=== PATIENT | female | born 1960 | race Caucasian/White ===

== ENCOUNTER 2017-04-07 07:28 | Outpatient (CLI) | payer BC ==
[2017-04-08 11:25] LABS: BASOPHILS # (AUTO) 0.1 10^3/uL (0.0-0.1); BASOPHILS % (AUTO) 1.2 %; EOSINOPHILS # (AUTO) 0.4 10^3/uL (0.0-0.7); HCT - HEMATOCRIT 39.7 % (37.0-47.0); LYMPHOCYTES # (AUTO) 2.1 10^3/uL (1.5-3.5); LYMPHOCYTES % (AUTO) 28.1 %; MEAN CORPUSCULAR HEMOGLOBIN 32.7 pg (27.0-31.0); MEAN CORPUSCULAR HGB CONC 32.8 g/dL (32.0-36.0); MEAN CORPUSCULAR VOLUME 99.7 fL (81.0-99.0); MEAN PLATELET VOLUME 8.2 fL (7.9-10.8); MONOCYTES # (AUTO) 0.4 10^3/uL (0.0-1.0); MONOCYTES % (AUTO) 5.5 %; NEUTROPHILS # (AUTO) 4.5 10^3/uL (1.5-6.6); NEUTROPHILS % (AUTO) 60.2 %; NUCLEATED RED BLOOD CELLS AUTO 0.3 /100WBC; RED BLOOD COUNT 3.98 10^6/uL (4.20-5.40); RED CELL DISTRIBUTION WIDTH 14.3 % (12.0-15.0); UNCORRECTED WHITE BLOOD COUNT 7.5 x10^3/uL; WHITE BLOOD COUNT 7.5 x10^3/uL (4.8-10.8)
[2017-04-08 12:01] LABS: ALBUMIN/GLOBULIN RATIO 1.6 (1.0-2.2); BILIRUBIN,TOTAL 0.5 mg/dL (0.2-1.0); CALCIUM 9.1 mg/dL (8.5-10.3); CREATININE 0.8 mg/dL (0.4-1.0); TOTAL PROTEIN 6.8 g/dL (6.7-8.2)
== END 2017-04-07 07:29 | disposition home or self-care (01) ==
LOC: LAB.F 07:28
PROVIDERS: ATTEND Physician Assistant Medical
DX: E55.9 Vitamin D deficiency, unspecified (principal)
CPT/HCPCS: 36415; 80053; 82306; 85025

== ENCOUNTER 2018-10-06 10:08 | Outpatient (CLI) | payer BC ==
[2018-10-06 17:47] LABS: BASOPHILS % (AUTO) 0.9 %; EOSINOPHILS # (AUTO) 0.1 10^3/uL (0.0-0.7); EOSINOPHILS % (AUTO) 2.5 %; HGB - HEMOGLOBIN 12.5 g/dL (12.0-16.0); LYMPHOCYTES # (AUTO) 1.4 10^3/uL (1.5-3.5); LYMPHOCYTES % (AUTO) 30.5 %; MEAN CORPUSCULAR HEMOGLOBIN 32.7 pg (27.0-31.0); MEAN CORPUSCULAR HGB CONC 32.9 g/dL (32.0-36.0); MEAN CORPUSCULAR VOLUME 99.5 fL (81.0-99.0); MEAN PLATELET VOLUME 8.2 fL (7.9-10.8); MONOCYTES # (AUTO) 0.3 10^3/uL (0.0-1.0); MONOCYTES % (AUTO) 6.2 %; NEUTROPHILS # (AUTO) 2.7 10^3/uL (1.5-6.6); NEUTROPHILS % (AUTO) 59.9 %; PLT - PLATELET COUNT 321 10^3/uL (130-450); RED BLOOD COUNT 3.83 10^6/uL (4.20-5.40); RED CELL DISTRIBUTION WIDTH 13.5 % (12.0-15.0); WHITE BLOOD COUNT 4.5 x10^3/uL (4.8-10.8)
[2018-10-06 17:52] LABS: ALBUMIN 3.9 g/dL (3.2-5.5); ALBUMIN/GLOBULIN RATIO 1.4 (1.0-2.2); ALKALINE PHOSPHATASE 44 IU/L (42-121); ALT ALANINE AMINOTRANSFERASE 19 IU/L (10-60); AST ASPARTATE AMINOTRANSFERASE 21 IU/L (10-42); BILIRUBIN,TOTAL 1.1 mg/dL (0.2-1.0); BUN - BLOOD UREA NITROGEN 12 mg/dL (6-20); CALCIUM 8.9 mg/dL (8.5-10.3); CARBON DIOXIDE - CO2 25 mmol/L (21-32); CHLORIDE 106 mmol/L (101-111); CHOL/HDL RATIO 4.5 (<4.4); CHOLESTEROL 254 mg/dL; CREATININE 0.7 mg/dL (0.4-1.0); GFR - MDRD 87 (>89); GLUCOSE 98 mg/dL (70-100); HDL CHOLESTEROL 57 mg/dL; LDL CHOLESTEROL,CALCULATED 175 mg/dL; LDL/HDL RATIO 3.1 (<4.4); SODIUM 138 mmol/L (135-145); TOTAL PROTEIN 6.6 g/dL (6.7-8.2); VLDL CHOLESTEROL 22 mg/dL
[2018-10-06 17:54] LABS: THYROID STIMULATING HORMONE 1.59 uIU/mL (0.34-5.60)
== END 2018-10-06 10:09 | disposition home or self-care (01) ==
LOC: LAB.F 10:08
PROVIDERS: ATTEND Physician Assistant Medical
DX: Z00.00 Encounter for general adult medical examination without abnormal findings (principal); Z51.81 Encounter for therapeutic drug level monitoring
CPT/HCPCS: 36415; 80053; 80061; 82607; 83721; 84443; 85025

== ENCOUNTER 2018-10-07 09:19 | Outpatient (CLI) | payer BC ==
--- NOTE | 2018-10-08 09:17 | DEXA Report ---
Reason: POSTMENOPAUSAL STATUS Procedure Date: 10/07/2018 Accession Number: [id number] / [id number] Procedure: DEX - Dexa Spine and/or Hip CPT Code: FULL RESULT: EXAM: Dexa Spine and/or Hip DATE: 10/07/2018 9:54 AM CLINICAL HISTORY: POSTMENOPAUSAL STATUS TECHNIQUE: Dual energy x-ray absorptiometry (DXA) was performed on a [employer] System. Regions measured are the AP Spine, femoral neck, and if needed forearm. COMPARISON: None. In accordance with the International Society for Clinical Densitometry (ISCD) guidelines, data from previous exams may be reanalyzed using current recommendations and techniques. This is done to allow a more accurate basis for comparison with the current study. FINDINGS: The data for the lumbar spine is as follows: BMD (g/cm/cm) T-SCORE Z-SCORE REGION L1 1.065 -0.5 -0.8 L2 0.978 -1.9 -2.1 L3 1.103 -0.8 -1.1 L4 1.193 -0.1 -0.3 TOTAL 1.088 -0.8 -1.0 NOTE: All evaluable vertebrae are used for classification The data for the hip is as follows: BMD (g/cm/cm) T-SCORE Z-SCORE REGION Neck 0.895 -1.0 -0.7 TOTAL 0.906 -0.8 -0.9 NOTE: The femoral neck or total proximal femur, whichever is lowest, is used for classification. IMPRESSION: THE WHO CLASSIFICATION BASED ON THE INTERNATIONAL REFERENCE STANDARD IS NORMAL. THE FRACTURE RISK IS NOT INCREASED. RECOMMENDATION: Patients with diagnosis of osteoporosis or osteopenia should have regular bone mineral density assessment. For those eligible for Medicare, routine testing is allowed once every 2 years. Testing frequency can be increased for patients who have rapidly progressing disease or for those who are receiving medical therapy to restore bone mass. COMMENT: World Health Organization (WHO) definitions for osteoporosis and osteopenia: NORMAL BMD: T-score at -1.0 or higher, fracture risk is low OSTEOPENIA BMD: T-score between -1.0 and -2.5, fracture risk is increased. OSTEOPOROSIS BMD: T-score at -2.5 or lower, fracture risk is high. National Osteoporosis Foundation recommends: 1. Obtain adequate dietary calcium (at least 1200 mg per day) and vitamin D (400-800 international units per day). 2. Participate, as appropriate, in regular weightbearing and muscle-strengthening exercise. 3. Avoid tobacco use and reduce alcohol and caffeine intake. 4. For more detailed information see the website at www.NOF.org.
== END 2018-10-07 09:20 | disposition home or self-care (01) ==
LOC: DI 09:19
PROVIDERS: ATTEND Physician Assistant Medical
DX: Z78.0 Asymptomatic menopausal state (principal)
CPT/HCPCS: 77080

== ENCOUNTER 2019-12-02 08:09 | Outpatient (CLI) | payer BC ==
[2019-12-02 10:24] LABS: BASOPHILS # (AUTO) 0.1 10^3/uL (0.0-0.1); BASOPHILS % (AUTO) 1.3 %; EOSINOPHILS # (AUTO) 0.1 10^3/uL (0.0-0.7); EOSINOPHILS % (AUTO) 1.5 %; LYMPHOCYTES # (AUTO) 1.4 10^3/uL (1.5-3.5); LYMPHOCYTES % (AUTO) 27.3 %; MEAN CORPUSCULAR HEMOGLOBIN 32.9 pg (27.0-31.0); MEAN CORPUSCULAR HGB CONC 32.1 g/dL (32.0-36.0); MEAN CORPUSCULAR VOLUME 102.5 fL (81.0-99.0); MONOCYTES # (AUTO) 0.3 10^3/uL (0.0-1.0); MONOCYTES % (AUTO) 5.9 %; NEUTROPHILS # (AUTO) 3.3 10^3/uL (1.5-6.6); NEUTROPHILS % (AUTO) 63.6 %; RED BLOOD COUNT 3.95 10^6/uL (4.20-5.40); RED CELL DISTRIBUTION WIDTH 12.3 % (12.0-15.0)
[2019-12-02 10:36] LABS: ALKALINE PHOSPHATASE 37 IU/L (42-121); ALT ALANINE AMINOTRANSFERASE 24 IU/L (10-60); AST ASPARTATE AMINOTRANSFERASE 20 IU/L (10-42); BILIRUBIN,TOTAL 0.9 mg/dL (0.2-1.0); CARBON DIOXIDE - CO2 24 mmol/L (21-32); CHLORIDE 105 mmol/L (101-111); CHOLESTEROL 218 mg/dL; GLUCOSE 104 mg/dL (70-100); HDL CHOLESTEROL 55 mg/dL; LDL CHOLESTEROL,CALCULATED 136 mg/dL; LDL/HDL RATIO 2.5 (<4.4); SODIUM 140 mmol/L (135-145); VLDL CHOLESTEROL 27 mg/dL
[2019-12-02 10:43] LABS: WHITE BLOOD COUNT 5.2 x10^3/uL (4.8-10.8)
[2019-12-02 10:45] LABS: ALBUMIN 3.9 g/dL (3.2-5.5); ALBUMIN/GLOBULIN RATIO 1.3 (1.0-2.2); BUN - BLOOD UREA NITROGEN 15 mg/dL (6-20); CREATININE 0.9 mg/dL (0.4-1.0); GFR - MDRD 65 (>89)
== END 2019-12-02 08:10 | disposition home or self-care (01) ==
LOC: LAB.S 08:09
PROVIDERS: ATTEND Physician Assistant Medical
DX: Z51.81 Encounter for therapeutic drug level monitoring (principal); Z79.899 Other long term (current) drug therapy
CPT/HCPCS: 36415; 80053; 80061; 83721; 85025

== ENCOUNTER 2020-11-13 07:49 | Outpatient (CLI) | payer BC ==
[2020-11-13 15:35] LABS: BASOPHILS # (AUTO) 0.1 10^3/uL (0.0-0.1); BASOPHILS % (AUTO) 1.1 %; EOSINOPHILS # (AUTO) 0.3 10^3/uL (0.0-0.7); EOSINOPHILS % (AUTO) 5.1 %; HGB - HEMOGLOBIN 13.1 g/dL (12.0-16.0); LYMPHOCYTES # (AUTO) 1.6 10^3/uL (1.5-3.5); LYMPHOCYTES % (AUTO) 30.8 %; MEAN CORPUSCULAR HEMOGLOBIN 32.5 pg (27.0-31.0); MEAN CORPUSCULAR HGB CONC 31.3 g/dL (32.0-36.0); MEAN CORPUSCULAR VOLUME 103.7 fL (81.0-99.0); MEAN PLATELET VOLUME 10.2 fL (7.9-10.8); MONOCYTES # (AUTO) 0.3 10^3/uL (0.0-1.0); MONOCYTES % (AUTO) 6.4 %; NEUTROPHILS % (AUTO) 56.4 %; PLT - PLATELET COUNT 315 10^3/uL (130-450); RED BLOOD COUNT 4.03 10^6/uL (4.20-5.40); RED CELL DISTRIBUTION WIDTH 12.7 % (12.0-15.0); WHITE BLOOD COUNT 5.3 x10^3/uL (4.8-10.8)
[2020-11-13 15:44] LABS: ALBUMIN 4.3 g/dL (3.2-5.5); ALBUMIN/GLOBULIN RATIO 1.5 (1.0-2.2); ALKALINE PHOSPHATASE 38 IU/L (42-121); ALT ALANINE AMINOTRANSFERASE 28 IU/L (10-60); AST ASPARTATE AMINOTRANSFERASE 27 IU/L (10-42); BILIRUBIN,TOTAL 1.2 mg/dL (0.2-1.0); BUN - BLOOD UREA NITROGEN 14 mg/dL (6-20); CALCIUM 9.4 mg/dL (8.5-10.3); CARBON DIOXIDE - CO2 25 mmol/L (21-32); CHLORIDE 104 mmol/L (101-111); CHOL/HDL RATIO 4.5 (<4.4); CHOLESTEROL 294 mg/dL; CREATININE 0.9 mg/dL (0.4-1.0); GLUCOSE 102 mg/dL (70-100); HDL CHOLESTEROL 66 mg/dL; LDL CHOLESTEROL,CALCULATED 200 mg/dL; SODIUM 138 mmol/L (135-145); TOTAL PROTEIN 7.1 g/dL (6.7-8.2); VLDL CHOLESTEROL 28 mg/dL
== END 2020-11-13 07:50 | disposition home or self-care (01) ==
LOC: LAB.S 07:49
PROVIDERS: ATTEND Registered Nurse
DX: E78.00 Pure hypercholesterolemia, unspecified (principal); Z13.228 Encounter for screening for other metabolic disorders; Z13.29 Encounter for screening for other suspected endocrine disorder; Z13.0 Encounter for screening for diseases of the blood and blood-forming organs and certain disorders involving the immune mechanism
CPT/HCPCS: 36415; 80053; 80061; 83721; 84443; 85025

== ENCOUNTER 2020-12-27 08:00 | Outpatient (CLI) | payer BC | END 2020-12-27 23:59 | disposition home or self-care (01) | LOC: LAB.R 08:00 | PROVIDERS: ATTEND Emergency Medicine | DX: S61.451A Open bite of right hand, initial encounter (principal); W55.01XA Bitten by cat, initial encounter | CPT/HCPCS: 87070; 87077; 87181; 87205 ==

== ENCOUNTER 2021-12-16 08:42 | Outpatient (CLI) | payer BC ==
--- NOTE | 2021-12-17 07:38 | Mammography Report ---
BILATERAL DIGITAL SCREENING MAMMOGRAM 3D/2D: 12/16/2021 CLINICAL: Routine screening. Comparison is made to exams dated: 01/31/2016 mammogram and 11/13/2014 mammogram - [facility]. The tissue of both breasts is predominantly fatty. No significant masses, calcifications, or other findings are seen in either breast. There has been no significant interval change. IMPRESSION: NEGATIVE There is no mammographic evidence of malignancy. A 1 year screening mammogram is recommended. This exam was interpreted at Station ID: [id number]. NOTE: For mammograms, a report in lay terms will be sent to the patient. Approximately 15% of breast malignancies will not be visualized mammographically. In the management of a palpable breast mass, a negative mammogram must not discourage biopsy of a clinically suspicious lesion. Electronically Signed By: Topher Centeno M.D. ar/penrad:12/16/2021 10:59:16 ACR BI-RADS Category 1: Negative 3341F PARENCHYMAL PATTERN: (F) - The breast(s) demonstrate(s) diffuse fatty replacement. BI-RADS CATEGORY: (1) - 1 RECOMMENDATION: (ANNUAL) - Recommend routine annual screening mammography. [id number] 1 year screening LATERALITY: (B)
== END 2021-12-16 08:43 | disposition home or self-care (01) ==
LOC: DI.S 08:42
PROVIDERS: ATTEND Registered Nurse
DX: Z12.31 Encounter for screening mammogram for malignant neoplasm of breast (principal)

== ENCOUNTER 2022-03-06 12:31 | Outpatient (CLI) | payer BC ==
--- NOTE | 2022-03-06 15:48 | XRAY Report ---
PROCEDURE: Knee 2 View BILAT INDICATIONS: BILATERAL KNEE JOINT PAIN TECHNIQUE: 2 views of the bilateral knee(s) were acquired. COMPARISON: None. FINDINGS: Bones: There is moderate right femorotibial compartment narrowing and lateral left femorotibial ben rtment narrowing. There are I lateral tricompartmental osteophytes. Soft tissues: No joint effusion. No suspicious soft tissue calcifications. IMPRESSION: Moderate to severe bilateral knee osteoarthritis. Reviewed by: Jaquelin Isaca MD on 03/06/2022 3:47 PM PDT Approved by: Jaquelin Isaac MD on 03/06/2022 3:47 PM PDT Station ID: [id number]
== END 2022-03-06 12:32 | disposition home or self-care (01) ==
LOC: DI.S 12:31
PROVIDERS: ATTEND Registered Nurse
DX: M17.0 Bilateral primary osteoarthritis of knee (principal)

== ENCOUNTER 2022-06-30 08:00 | Outpatient (CLI) | payer BC ==
--- NOTE | 2022-06-30 16:41 | XRAY Report ---
PROCEDURE: Chest 2 View X-Ray INDICATIONS: COUGH, CHEST CONGESTION TECHNIQUE: 2 view(s) of the chest. COMPARISON: None. FINDINGS: Surgical changes and devices: None. Lungs and pleura: No pleural effusions or pneumothorax. Lungs are clear. Mediastinum: Mediastinal contours are normal. Heart size is normal. Bones and chest wall: No suspicious bony abnormalities. Soft tissues appear unremarkable. IMPRESSION: Chest without acute cardiopulmonary abnormalities or focal airspace disease. Reviewed by: Armen Figueroa MD on 06/30/2022 4:40 PM PDT Approved by: Armen Figueroa MD on 06/30/2022 4:40 PM PDT Station ID: [id number]
== END 2022-06-30 08:01 | disposition home or self-care (01) ==
LOC: DI.S 08:00
PROVIDERS: ATTEND Physician Assistant Medical
DX: R05.9 Cough, unspecified (principal); R09.89 Other specified symptoms and signs involving the circulatory and respiratory systems; Z86.16 Personal history of COVID-19

== ENCOUNTER 2023-01-13 10:42 | Outpatient (CLI) | payer BC, OTHER ==
--- NOTE | 2023-01-14 09:00 | Mammography Report ---
BILATERAL DIGITAL SCREENING MAMMOGRAM 3D/2D: 01/13/2023 CLINICAL: Routine screening. Comparison is made to exams dated: 12/16/2021 mammogram, 01/31/2016 mammogram, and 11/13/2014 mammogram - [facility]. Both breasts are almost entirely fatty (category a/<25% glandular tissue). There is a benign focal asymmetry in the left breast. No significant masses, calcifications, or other findings are seen in either breast. There has been no significant interval change. IMPRESSION: BENIGN There is no mammographic evidence of malignancy. A 1 year screening mammogram is recommended. Based on the Tyrer Cuzick model (a risk assessment model) the patients lifetime risk is 6.4% and her 10 year risk is 2.6%. According to the ACR, ACS, and NCCN guidelines, an annual breast MRI exam chriss g with mammogram is recommended if the patients lifetime risk is 20% or greater. This exam was interpreted at Station ID: [id number]. NOTE: For mammograms, a report in lay terms will be sent to the patient. Approximately 15% of breast malignancies will not be visualized mammographically. In the management of a palpable breast mass, a negative mammogram must not discourage biopsy of a clinically suspicious lesion. Electronically Signed By: Mi mckeon/yadiel:01/13/2023 17:02:06 letter sent: No_Letter ACR BI-RADS Category 2: Benign Finding(s) 3342F PARENCHYMAL PATTERN: (F) - The breast(s) demonstrate(s) diffuse fatty replacement. BI-RADS CATEGORY: (2) - 2 Mammogram [id number] 1 year screening LATERALITY: (B)
== END 2023-01-13 10:43 | disposition home or self-care (01) ==
LOC: DI.S 10:42
PROVIDERS: ATTEND Registered Nurse
DX: Z12.31 Encounter for screening mammogram for malignant neoplasm of breast (principal)

== ENCOUNTER 2023-06-18 14:40 | Outpatient (CLI) | payer OTHER | END 2023-06-18 14:41 | disposition home or self-care (01) | LOC: RT 14:40 | PROVIDERS: ATTEND Registered Nurse | DX: J45.909 Unspecified asthma, uncomplicated (principal) | CPT/HCPCS: 94010; 94729 ==

== ENCOUNTER 2024-02-03 10:40 | Outpatient (CLI) | payer OTHER ==
--- NOTE | 2024-02-04 09:10 | Mammography Report ---
BILATERAL DIGITAL SCREENING MAMMOGRAM 3D/2D: 02/03/2024 CLINICAL: Routine screening. Comparison is made to exams dated: 01/13/2023 mammogram, 12/16/2021 mammogram, 01/31/2016 mammogram, an d 11/13/2014 mammogram - [facility]. Both breasts are almost entirely fatty (category a/<25% glandular tissue). There are grouped punctate calcifications in the left breast at 1 o'clock middle depth. These are in creased in number. No other significant masses, calcifications, or other findings are seen in either breast. IMPRESSION: INCOMPLETE: NEEDS ADDITIONAL IMAGING EVALUATION The grouped punctate calcifications in the left breast are indeterminate. Additional views with poss ible ultrasound are recommended. Based on the Tyrer Cuzick model (a risk assessment model) the patient's lifetime risk is 6.3% and her 10 year risk is 2.6%. According to the ACR, ACS, and NCCN guidelines, an annual breast MRI exam chriss g with mammogram is recommended if the patient's lifetime risk is 20% or greater. This exam was interpreted at Station ID: [id number]. NOTE: For mammograms, a report in lay terms will be sent to the patient. Approximately 15% of breast malignancies will not be visualized mammographically. In the management of a palpable breast mass, a negative mammogram must not discourage biopsy of a clinically suspicious lesion. Electronically Signed By: Mi mckeon/:02/03/2024 16:41:33 ACR BI-RADS Category 0: Incomplete 3340F PARENCHYMAL PATTERN: (F) - The breast(s) demonstrate(s) diffuse fatty replacement. BI-RADS CATEGORY: (0) - 0 Mammo and [place] [id number] Immediate follow-up LATERALITY: (B)
== END 2024-02-03 10:41 | disposition home or self-care (01) ==
LOC: DI.S 10:40
PROVIDERS: ATTEND Registered Nurse
DX: Z12.31 Encounter for screening mammogram for malignant neoplasm of breast (principal); R92.1 Mammographic calcification found on diagnostic imaging of breast

== ENCOUNTER 2024-03-08 12:18 | Outpatient (CLI) | payer OTHER ==
--- NOTE | 2024-03-09 08:51 | Mammography Report ---
UNILATERAL LEFT DIGITAL DIAGNOSTIC MAMMOGRAM 3D/2D WITH MAGNIFICATION: 03/08/2024 CLINICAL: Patient returns for magnification views of microcalcifications in the left breast. Comparison is made to exams dated: 02/03/2024 mammogram, 01/13/2023 mammogram, and 12/16/2021 mammogram - [facility]. The left breast is almost entirely fatty (category a/<25% glandular tissue). There is a 2.9 cm area of grouped fine heterogeneous calcifications in the left breast at 1 o'clock m iddle depth. These are seen in additional views. These are increased in number. No other significant masses or calcifications are seen in the breast. IMPRESSION: INCOMPLETE: NEEDS ADDITIONAL IMAGING EVALUATION The 2.9 cm area of grouped fine heterogeneous calcifications in the left breast are indeterminate. A n ultrasound is recommended. Based on the Tyrer Cuzick model (a risk assessment model) the patient's lifetime risk is 6.3% and her 10 year risk is 2.6%. According to the ACR, ACS, and NCCN guidelines, an annual breast MRI exam chriss g with mammogram is recommended if the patient's lifetime risk is 20% or greater. This exam was interpreted at Station ID: [id number]. NOTE: For mammograms, a report in lay terms will be sent to the patient. Approximately 15% of breast malignancies will not be visualized mammographically. In the management of a palpable breast mass, a negative mammogram must not discourage biopsy of a clinically suspicious lesion. Electronically Signed By: Topher Centeno M.D. ar/penrad:03/08/2024 13:40:05 ACR BI-RADS Category 0: Incomplete 3340F PARENCHYMAL PATTERN: (F) - The breast(s) demonstrate(s) diffuse fatty replacement. BI-RADS CATEGORY: (0) - 0 Ultrasound [id number] Immediate follow-up LATERALITY: (L)
--- NOTE | 2024-03-09 08:51 | Ultrasound Report ---
LIMITED ULTRASOUND OF LEFT BREAST AND AXILLA: 03/08/2024 CLINICAL: Patient returns today to evaluate a focal asymmetry in the left breast. Comparison is made to exams dated: 03/08/2024 mammogram, 02/03/2024 mammogram, 01/13/2023 mammogram, and 12/16/2021 mammogram - [facility]. Color flow and real-time ultrasound of the left breast 1 o'clock, and axilla regions were performed. Romero scale images of the real-time examination were reviewed. No significant abnormalities were seen sonographically in the left breast or the left axilla. IMPRESSION: SUSPICIOUS OF MALIGNANCY There is no reliable sonographic biopsy target seen in the left breast to correspond with the mammogr aphic calcifications at 1 o'clock. Stereotactic biopsy is recommended for further evaluation. Finding s and recommendations were discussed with the patient by the onsite radiologist, Dr. Figueroa, at the time of the exam. No significant abnormalities were seen sonographically in the left axilla. This exam was interpreted at Station ID: [id number]. Electronically Signed By: Topher Centeno M.D. ar/:03/08/2024 13:43:18 Ultrasound BI-RADS: 4c High suspicion of malignancy BI-RADS CATEGORY: (4c) - High Susp Biopsy [id number] Immediate follow-up LATERALITY: (L)
== END 2024-03-08 12:19 | disposition home or self-care (01) ==
LOC: DI 12:18
PROVIDERS: ATTEND Registered Nurse
DX: R92.1 Mammographic calcification found on diagnostic imaging of breast (principal)

== ENCOUNTER 2024-06-06 07:41 | Day surgery (SDC) | payer OTHER ==
[2024-06-06] MEDS ORDERED: ceFAZolin 2 GM VIAL ONE (07:45)
[2024-06-06] MEDS ORDERED: LIDOCAINE 1%-EPI 1:100000 20 ML MDV ONE ×2 (08:08→09:22)
[2024-06-06] MEDS ORDERED: LIDOCAINE-MPF 1% 5 ML VIAL ONE (08:08)
[2024-06-06] MEDS: ACETAMINOPHEN 500 MG TABLET PO ONE (08:16)
[2024-06-06] MEDS: LACTATED RINGERS 1,000 ML IV ONE ×2 (08:17→12:03)
--- NOTE | 2024-06-06 08:45 | ANESTHESIA ---
Pre-Anesthesia VS, & Labs - Diagnosis DCIS - Procedure BREAST LUMPECTOMY LEFT Vital Signs: Temp Pulse Resp BP Pulse Ox O2 Flow Rate 36.0 C L 74 16 141/89 H 99 06/06/24 08:04 06/06/24 08:04 06/06/24 08:04 06/06/24 08:04 06/06/24 08:04 Height: 5 ft 4 in Weight (kg): 103 kg Body Mass Index: 38.9 BMI Classification: Obese - NPO >8 hours - Is Patient ?: No Home Medications and Allergies Home Medications: Ambulatory Orders Calcium Carbonate [Tums (Calcium Carbonate 500mg)] 500 mg PO PRN PRN 05/27/24 Calcium Carbonate/Vitamin D3 [Calcium 500 mg Chewable Tablet] 1 each PO DAILY 05/27/24 Multivit-Minerals/Folic Acid [Multivitamin Gummies] 200 mcg PO DAILY 05/27/24 Naproxen Sodium [Aleve] 220 mg PO DAILY PRN 05/27/24 Albuterol Sulfate [Ventolin Hfa] 1 - 2 puffs INH PRN PRN 09/14/14 Fluticasone Propion/Salmeterol [Fluticasone-Salmeterol 250-50] 1 each IH BID 04/20/24 Latanoprost 0.005% Ophth Drops [Xalatan Ophth Drops] 1 drops EACHEYE QPM 04/20/24 Omeprazole 20 mg PO DAILY 04/20/24 Timolol 0.5% Ophth Drops [Timoptic 0.5% Ophth Drops] 1 drops EACHEYE BID 04/20/24 Calcium Carbonate [Tums (Calcium Carbonate 500mg)] 500 mg PO PRN PRN 05/27/24 Calcium Carbonate/Vitamin D3 [Calcium 500 mg Chewable Tablet] 1 each PO DAILY 05/27/24 Multivit-Minerals/Folic Acid [Multivitamin Gummies] 200 mcg PO DAILY 05/27/24 Naproxen Sodium [Aleve] 220 mg PO DAILY PRN 05/27/24 Allergies/Adverse Reactions: Allergies Allergy/AdvReac Type Severity Reaction Status Date / Time brimonidine AdvReac red, teary Verified 05/27/24 13:23 eyes Anes History & Medical History - Anesthetic History Anesthesia Complications: reports: No previous complications Family history of Anesthesia Complications: Denies Family history of Malignant Hyperthermia: Denies - Medical History Cardiovascular: reports: None Pulmonary: reports: Asthma (DAILY INHALER AND EMERGENCY INHALER) Gastrointestinal: reports: GERD Urinary: reports: None Neuro: reports: None Musculoskeletal: reports: Osteoarthritis Endocrine/Autoimmune: reports: None Blood Disorders: reports: None Skin: reports: None Smoking Status: Never smoker Psychosocial: reports: No issues indicated History of Cancer?: Yes (NO PREVIOUS CHEMO OR RADIATION) Results - EKG Results EKG Comparison: Reviewed EKG, Normal EKG Exam General: Alert, Oriented x3, Cooperative, No acute distress Dental: WNL Mouth Openin Fingerbreadth Neck Mobility: Normal Mallampati classification: I Thyromental Distance: 4-6 cm Mental/Cognitive Status: Alert/Oriented X3, Normal for patient Cognitive Status: Within normal limits Plan Anesthesia Type: General Consent for Procedure(s) Verified and Reviewed: Yes Code Status: Attempt Resuscitation ASA classification: 3-Severe systemic disease Is this case an emergency?: No
[2024-06-06] MEDS ORDERED: ePHEDrine 50 MG/ML VIAL IVP PRN (08:48)
[2024-06-06] MEDS ORDERED: ONDANSETRON 4 MG/2 ML VIAL IVP PRN ×2 (08:48→12:07)
[2024-06-06] MEDS ORDERED: fentaNYL 100 MCG/2 ML VIAL IVP PRN (08:48)
[2024-06-06] MEDS ORDERED: NALOXONE 0.4 MG/ML VIAL IVP PRN (08:48)
[2024-06-06] MEDS ORDERED: ATROPINE ABBOJECT 1 MG/10 ML SYRINGE IVP PRN (08:48)
[2024-06-06] MEDS ORDERED: HYDROmorphone 0.5 MG/0.5 ML SYRINGE IVP PRN ×2 (08:48→12:07)
[2024-06-06] MEDS ORDERED: LACTATED RINGERS 1,000 ML IV SCH (09:00)
[2024-06-06] MEDS ORDERED: BUPIVACAINE 0.5% PF 10 ML VIAL ONE (09:22)
[2024-06-06] MEDS: LIDOCAINE-MPF 1% 5 ML VIAL TD ONE (10:05)
[2024-06-06] MEDS: BUPIVACAINE 0.5% PF 30 ML VIAL INFIL ONE (11:07)
[2024-06-06] MEDS: LIDOCAINE 1%-EPI 1:100000 50 ML VIAL SUBQ ONE (11:08)
[2024-06-06] MEDS ORDERED: ACETAMINOPHEN 500 MG TABLET PO PRN (12:07)
[2024-06-06] MEDS ORDERED: IBUPROFEN 600 MG TABLET PO PRN (12:07)
--- NOTE | 2024-06-06 12:14 | OPERATIVE REPORT ---
Operative Report - General Procedure Date: 06/06/24 Planned Procedure: wire bracketed left lumpectomy Pre-Op Diagnosis: L breast DCIS Procedure Performed: wire bracketed left lumpectomy Post Op Diagnosis: L breast DCIS - Procedure Note Primary Surgeon: Dr. Kelly Aguirre Anesthesia Provider: Zulema Ortiz CRNA Anesthesia Technique: General LMA, Local Pathology: 1. L lumpectomy 2. reexcision of inferior margin Estimated Blood Loss (mL): 15 Drain/Tube Type: Jesus Manuel Mancera round drain (L breast) Indications: The patient had abnormal calcifications noted on her recent screening mammogram without any associated mass. Image guided biopsy revealed DCIS. She was seen and evaluated in the clinic where we discussed the risks, benefits, and alternatives of lumpectomy including but not limited to bleeding, infection, damage to surrounding structures, upgrade of the DCIS to invasive ductal carcinoma, positive margins, and the possible need for further surgeries or procedures. The patient voiced understanding, her questions were answered, and she wished to proceed. A consent was signed by the patient prior to surgery. Findings: 1.Clip and 2 wires present in initial specimen. Specimen was oriented short superior, long lateral, double anterior 2. Additional inferior margin was reexcised and oriented short superior, long lateral, double anterior Complications: None - Other Other Information/Narrative: The patient was taken to the operating room and placed in the supine position. Preop antibiotics were given. ERAS medications were given. The patient was prepped and draped in the usual sterile fashion. A preop surgical timeout was performed. Attention was turned to the patient's left breast. An incision was made which incorporated both wires, following the patient's skin folds, at the 10 o'clock position. Skin flaps were raised superiorly and inferiorly to the incision. Serrated scissors were used to perform a lumpectomy staying approximately 1 cm away from the wires, and in a directed fashion based on the mammogram taken after wire placement. The lumpectomy was noted to be close to the tip of the posterior wire which appeared to be the inferior aspect of the calcifications. An additional specimen was taken in this location and labeled reexcision of inferior margin. Both specimens were oriented short superior, long lateral, double anterior with marking suture on the back table. The first specimen was sent to mammography and the biopsy clip was confirmed to be within the specimen with both wires present.The edges of the lumpectomy cavity were inspected and there were no palpable abnormalities. Hemostasis was confirmed. The lumpectomy cavity was irrigated with warm normal saline. Clips were placed in the superior, inferior, medial, lateral, anterior, and posterior margins of the lumpectomy cavity. A 7 Cuban ISHA drain was placed in the lumpectomy cavity due to its size. This was sewn into place using a 3-0 nylon suture. The deep dermal tissues were closed with 3-0 Vicryl in an interrupted fashion. The skin was closed with 4-0 Monocryl in a running subcuticular fashion. The patient tolerated the procedure well. There were no complications. Because the patient has DCIS at the time of this procedure, no axillary lymph node staging is necessary at this time.
[2024-06-06] MEDS ORDERED: oxyCODONE 5 MG TABLET ONE (13:39)
[2024-06-06] MEDS: oxyCODONE 5 MG TABLET PO PRN (13:42)
[2024-06-06 14:35] VITALS: BP 125/70; O2SAT 98
--- NOTE | 2024-06-07 07:46 | Mammography Report ---
SPECIMEN LEFT BREAST: 06/06/2024 CLINICAL: Left breast specimen. Correlation is made to exams dated: 06/06/2024 localization, 03/22/2024 stereotactic biopsy, 03/08/2024 m ammogram, 02/03/2024 mammogram, and 01/13/2023 mammogram - [facility]. A surgical specimen was imaged for the 2.9 cm area of calcifications located in the left breast at 1 o'clock middle depth. This was described on the previous mammography and biopsy reports. IMPRESSION: SPECIMEN The imaged specimen includes the calcifications, a biopsy clip, and the distal portion of the localiz ation wires. This exam was interpreted at Station ID: [id number]. Topher ng/yadiel:06/06/2024 20:13:14 BI-RADS CATEGORY: () - Unspecified - other recall n/a LATERALITY: (B)
--- NOTE | 2024-06-07 07:46 | Mammography Report ---
DIGITAL MAMMOGRAPHY GUIDED WIRE LOCALIZATION LEFT BREAST WITH POST DIGITAL MAMMOGRAPHIC IMAGING- - LE FT BREAST POST-PROCEDURE IMAGING FOR MARKER PLACEMENT: 06/06/2024 CLINICAL: Left breast wire localization. Correlation is made to exams dated: 03/22/2024 stereotactic biopsy, 03/08/2024 ultrasound, 03/08/2024 bladimir mogram, 02/03/2024 mammogram, 01/13/2023 mammogram, and 12/16/2021 mammogram - [facility]. A wire localization using digital mammography guidance was performed for the 2.9 cm area of calcifica tions located in the left breast at 1 o'clock middle depth. This was described on the previous mammo graphy and biopsy reports. The skin was prepped in the usual manner. Local anesthetic was administe red to the access site. A skin wilver was made in the breast. The localization was approached from th e craniocaudal aspect. Two J-hook wires were inserted into the targeted area under digital mammograp hy guidance. A sterile dressing was applied to the access site. Post placement digital mammographic imaging demonstrates the tips demarcate the boundaries of the targeted area. IMPRESSION: WIRE LOCALIZATION Wire localization for the 2.9 cm area of calcifications in the left breast at 1 o'clock middle depth with placement of two wires was successful with no apparent post procedure complications. This exam was interpreted at Station ID: [id number]. Topher ng/yadiel:06/06/2024 20:07:40 BI-RADS CATEGORY: () - Unspecified - other recall n/a LATERALITY: (B)
== END 2024-06-06 07:42 | disposition home or self-care (01) ==
LOC: DI 07:41
PROVIDERS: ATTEND Surgery
PROC: 0HBU0ZZ Excision of Left Breast, Open Approach (ICD-10-PCS; principal; 2024-06-06 10:00)
DX: D05.12 Intraductal carcinoma in situ of left breast (principal); E66.9 Obesity, unspecified; Z68.38 Body mass index [BMI] 38.0-38.9, adult; J45.909 Unspecified asthma, uncomplicated

== ENCOUNTER 2024-06-27 10:09 | Outpatient (CLI) | payer OTHER | END 2024-06-27 10:10 | disposition home or self-care (01) | LOC: LAB.S 10:09 | PROVIDERS: ATTEND Registered Nurse | DX: Z13.228 Encounter for screening for other metabolic disorders (principal); Z13.220 Encounter for screening for lipoid disorders; Z13.29 Encounter for screening for other suspected endocrine disorder; Z13.0 Encounter for screening for diseases of the blood and blood-forming organs and certain disorders involving the immune mechanism | CPT/HCPCS: 36415; 80053; 80061; 83721; 84443; 85025 ==

== ENCOUNTER 2024-07-11 07:41 | Day surgery (SDC) | payer OTHER ==
[~2024-07-11 07:41] MED LIST: ceFAZolin 2 GM VIAL ONE
[2024-07-11] MEDS: LACTATED RINGERS 1,000 ML IV ONE ×2 (07:43→11:06)
[2024-07-11] MEDS: ALPRAZolam 0.25 MG TABLET PO ONE ×2 (08:01→08:31)
[2024-07-11] MEDS: ACETAMINOPHEN 500 MG TABLET PO ONE (08:01)
[2024-07-11] MEDS ORDERED: MORPHINE 2 MG/ML CARPUJECT IVP PRN (08:50)
[2024-07-11] MEDS ORDERED: ePHEDrine 50 MG/ML VIAL IVP PRN (08:50)
[2024-07-11] MEDS ORDERED: ATROPINE ABBOJECT 1 MG/10 ML SYRINGE IVP PRN (08:50)
[2024-07-11] MEDS ORDERED: ONDANSETRON 4 MG/2 ML VIAL IVP PRN ×2 (08:50→10:28)
[2024-07-11] MEDS ORDERED: HYDROmorphone 0.5 MG/0.5 ML SYRINGE IVP PRN ×2 (08:50→10:28)
[2024-07-11] MEDS ORDERED: METOCLOPRAMIDE 10 MG/2 ML VIAL IVP PRN (08:50)
[2024-07-11] MEDS ORDERED: NALOXONE 0.4 MG/ML VIAL IVP PRN (08:50)
[2024-07-11] MEDS ORDERED: fentaNYL 100 MCG/2 ML VIAL IVP PRN (08:50)
--- NOTE | 2024-07-11 08:50 | ANESTHESIA ---
Pre-Anesthesia VS, & Labs - Diagnosis DCIS L breast - Procedure Re-excision positive margin L breast Vital Signs: Temp Pulse Resp BP Pulse Ox O2 Flow Rate 36.3 C L 65 12 142/85 H 100 0 07/11/24 07:59 07/11/24 07:59 07/11/24 07:59 07/11/24 07:59 07/11/24 07:59 07/11/24 07:59 Height: 5 ft 4 in Weight (kg): 103.3 kg Body Mass Index: 39.0 BMI Classification: Obese - NPO >8 hours - Is Patient ?: No - Lab Results Lab results reviewed: Yes Home Medications and Allergies Home Medications: Ambulatory Orders Montelukast [Singulair] 10 mg PO QPM 07/05/24 Albuterol Sulfate [Ventolin Hfa] 1 - 2 puffs INH PRN PRN 09/14/14 Fluticasone Propion/Salmeterol [Fluticasone-Salmeterol 250-50] 1 each IH BID 04/20/24 Latanoprost 0.005% Ophth Drops [Xalatan Ophth Drops] 1 drops EACHEYE QPM 04/20/24 Omeprazole 20 mg PO DAILY 04/20/24 Timolol 0.5% Ophth Drops [Timoptic 0.5% Ophth Drops] 1 drops EACHEYE BID 04/20/24 Calcium Carbonate [Tums (Calcium Carbonate 500mg)] 500 mg PO PRN PRN 05/27/24 Calcium Carbonate/Vitamin D3 [Calcium 500 mg Chewable Tablet] 1 each PO DAILY 05/27/24 Multivit-Minerals/Folic Acid [Multivitamin Gummies] 200 mcg PO DAILY 05/27/24 Naproxen Sodium [Aleve] 220 mg PO DAILY PRN 05/27/24 Montelukast [Singulair] 10 mg PO QPM 07/05/24 Allergies/Adverse Reactions: Allergies Allergy/AdvReac Type Severity Reaction Status Date / Time brimonidine AdvReac red, teary Verified 05/27/24 13:23 eyes Anes History & Medical History - Anesthetic History Anesthesia Complications: reports: No previous complications Family history of Anesthesia Complications: Denies Family history of Malignant Hyperthermia: Denies - Medical History Cardiovascular: reports: None Pulmonary: reports: Asthma Gastrointestinal: reports: GERD Urinary: reports: None Neuro: reports: None Musculoskeletal: reports: Osteoarthritis Endocrine/Autoimmune: reports: None Blood Disorders: reports: None Skin: reports: None Smoking Status: Never smoker Psychosocial: reports: Alcohol (rare) History of Cancer?: Yes (current breast) - Surgical History Gynecologic: reports: Other (excision previous L breast mass) Exam General: Alert, Oriented x3, Cooperative Dental: WNL Mouth Openin Fingerbreadth Neck Mobility: Normal Mallampati classification: II Thyromental Distance: 4-6 cm Respiratory: Lungs clear, Normal breath sounds Cardiovascular: Regular rate Neurological: Normal speech Mental/Cognitive Status: Alert/Oriented X3, Normal for patient Cognitive Status: Within normal limits Plan Anesthesia Type: General Consent for Procedure(s) Verified and Reviewed: Yes Code Status: Attempt Resuscitation ASA classification: 3-Severe systemic disease Is this case an emergency?: No
[2024-07-11] MEDS ORDERED: LACTATED RINGERS 1,000 ML IV SCH (09:00)
[2024-07-11] MEDS ORDERED: fentaNYL 100 MCG/2 ML VIAL ONE (09:03)
[2024-07-11] MEDS ORDERED: MIDAZOLAM 2 MG/2 ML VIAL ONE (09:03)
[2024-07-11] MEDS ORDERED: LIDOCAINE-PF 2% 10 ML AMP SUBQ ONE (09:04)
[2024-07-11] MEDS ORDERED: PROPOFOL 200 MG/20 ML VIAL IVP ONE (09:04)
[2024-07-11] MEDS ORDERED: BUPIVACAINE 0.5% PF 10 ML VIAL ONE (09:08)
[2024-07-11] MEDS ORDERED: LIDOCAINE 1%-EPI 1:100000 20 ML MDV ONE (09:08)
[2024-07-11] MEDS ORDERED: ONDANSETRON 4 MG/2 ML VIAL ONE (09:48)
[2024-07-11] MEDS ORDERED: DEXAMETHASONE 4 MG/ML VIAL ONE (09:48)
[2024-07-11] MEDS: LIDOCAINE 1%-EPI 1:100000 50 ML VIAL SUBQ ONE (10:20)
[2024-07-11] MEDS: BUPIVACAINE 0.5% PF 30 ML VIAL INFIL ONE (10:20)
[2024-07-11] MEDS ORDERED: oxyCODONE 5 MG TABLET PO PRN (10:28)
--- NOTE | 2024-07-11 10:33 | OPERATIVE REPORT ---
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 Kelly Aguirre Anesthesia Provider: Kenny Renee CRNA Anesthesia Technique: General LMA, Local Pathology: 1. re excision of anterior margin 2. re excision of anterior margin (thin area from specimen #1) *both oriented short superior, long lateral, double anterior Estimated Blood Loss (mL): 5 Indications: The patient has a history of left DCIS. She previously underwent excision of the area where DCIS was identified. The final pathology demonstrated a very close anterior margin. She was seen and evaluated in the clinic where we discussed the risks, benefits, and alternatives of reexcision of this margin. Risks include but are not limited to bleeding, infection, damage to surrounding structures, numbness in the area, and a persistently positive margin, as well as the possibility of requiring additional procedures. The patient voiced understanding, her questions were answered, and she wished to proceed. A consent was signed by the patient in clinic. Findings: 1.Anterior margin reexcised Complications: None - Other Other Information/Narrative: The patient was taken to the operating room and placed in the supine position. Preop antibiotics were given. ERAS medications were given. The patient was prepped and draped in the usual sterile fashion. A preop surgical timeout was performed. Attention was turned to the patient's left breast. The patient's prior upper outer quadrant incision was injected with local and reopened using a 10 blade scalpel. The location of the prior lumpectomy was identified and the anterior margin was reexcised. On inspection of the specimen, there was 1 area where the specimen was then, and an additional specimen was taken in this location. Both specimens were oriented on the back table and sent to pathology. Next, hemostasis was confirmed. The cavity was irrigated with warm normal saline. Clips were placed in the superior, inferior, medial, lateral, anterior, and posterior margins of the lumpectomy cavity. The deep dermal tissues were closed with 3-0 Vicryl in an interrupted fashion. The skin was closed with 4-0 Monocryl in a running subcuticular fashion. The patient tolerated the procedure well. There were no complications. Of note, the patient does not have a diagnosis of invasive cancer, and no axillary staging is needed at this time.
--- NOTE | 2024-07-11 11:12 | ANESTHESIA POST OP EVALUATION ---
Anesthesia Post Eval - Post Anesthesia Eval Vitals: Last Vital Signs Temp 36.2 C L 07/11/24 11:01 Pulse 57 L 07/11/24 11:01 Resp 10 L 07/11/24 11:01 BP 146/81 H 07/11/24 11:01 Pulse Ox 99 07/11/24 11:01 O2 Flow Rate 0 07/11/24 07:59 CV Function Including HR & BP: Stable Pain Control: Satisfactory Nausea & Vomiting: Negative Mental Status: Baseline Respiratory Status: Airway Patent Hydration Status: Satisfactory Anesthesia Complications: None
[2024-07-11 11:42] VITALS: O2SAT 97
[2024-07-11 11:59] VITALS: BP 145/88
== END 2024-07-11 07:42 | disposition home or self-care (01) ==
LOC: SDS 07:41
PROVIDERS: ATTEND Surgery
PROC: 0HBU0ZZ Excision of Left Breast, Open Approach (ICD-10-PCS; principal; 2024-07-11 09:15)
DX: D05.12 Intraductal carcinoma in situ of left breast (principal); E66.9 Obesity, unspecified; J45.909 Unspecified asthma, uncomplicated; Z68.39 Body mass index [BMI] 39.0-39.9, adult
CPT/HCPCS: 19301; A9270; J3490; J7120